=== PATIENT | male | born 1935 | race Caucasian/White ===

== ENCOUNTER 2019-01-22 23:59 | Inpatient (IN) | payer MEDICARE, OTHER ==
[2019-01-23 00:36] LABS: ADD MAN DIFF? NO
[2019-01-23 00:38] LABS: ABNORMAL IP MESSAGE 1; BASOPHIL # 0.1 10^3/ul (0.0-0.1); BASOPHILS % 0.2 % (0.0-2.0); EOSINOPHILS % 0.1 % (0.0-7.0); HEMATOCRIT 46.9 % (42.0-52.0); HEMOGLOBIN 14.6 g/dl (14.0-18.0); LYMPHOCYTES # 0.7 10^3/ul (0.8-2.9); LYMPHOCYTES % 2.9 % (15.0-51.0); MEAN CORPUSCULAR HEMOGLOBIN 25.1 pg (29.0-33.0); MEAN CORPUSCULAR HGB CONC 31.1 g/dl (32.0-37.0); MEAN CORPUSCULAR VOLUME 80.6 fl (82.0-101.0); MEAN PLATELET VOLUME 10.2 fl (7.4-10.4); MONOCYTE # 1.1 10^3/ul (0.3-0.9); MONOCYTES % 4.4 % (0.0-11.0); NEUTROPHIL # 22.9 10^3/ul (1.6-7.5); NEUTROPHILS % 91.9 % (39.0-77.0); PLATELET COUNT 153 10^3/UL (140-415); POSITIVE DIFF @See below; RED BLOOD COUNT 5.82 10^6/ul (4.70-6.10); RED CELL DISTRIBUTION WIDTH 16.4 % (11.5-14.5)
[2019-01-23 00:38] LABS: WHITE BLOOD COUNT 24.9 10^3/ul (4.8-10.8)
[2019-01-23 00:55] LABS: ALANINE AMINOTRANSFERASE 14 IU/L (13-69); ALKALINE PHOSPHATASE 82 IU/L (42-121); ANION GAP 11 (5-13); ASPARTATE AMINO TRANSFERASE 21 IU/L (15-46); BLOOD UREA NITROGEN 21 mg/dl (7-20); CALCIUM 9.4 mg/dl (8.4-10.2); CARBON DIOXIDE 25 mmol/L (21-31); CHLORIDE 106 mmol/L (97-110); CREATININE 1.12 mg/dl (0.61-1.24); GLUCOSE 126 mg/dl (70-220); POTASSIUM 4.2 mmol/L (3.5-5.1); SODIUM 142 mmol/L (135-144)
[2019-01-23 00:56] LABS: ALBUMIN 4.3 g/dl (3.3-4.9); ALBUMIN/GLOBULIN RATIO 1.16
[2019-01-23 01:07] LABS: TROPONIN-I 0.015 ng/ml (0.000-0.120)
[2019-01-23 01:14] LABS: INR 1.01; PROTIME 13.4 Sec (11.9-14.9)
[2019-01-23 01:15] LABS: PARTIAL THROMBOPLASTIN TIME 30.7 Sec (23.0-35.0)
[2019-01-23 01:16] LABS: ADD UMIC YES; UR ASCORBIC ACID NEGATIVE (NEGATIVE); UR BILIRUBIN (Dip) NEGATIVE (NEGATIVE); UR BLOOD (Dip) 2+ mg/dL (NEGATIVE); UR CLARITY SLIGHTLY CLOUDY (CLEAR); UR COLOR YELLOW (YELLOW); UR GLUCOSE (Dip) NEGATIVE (NEGATIVE); UR KETONES (Dip) NEGATIVE (NEGATIVE); UR LEUKOCYTE ESTERASE (Dip) NEGATIVE Leu/ul (NEGATIVE); UR MUCUS FEW /HPF (NONE SEEN); UR NITRITE (Dip) NEGATIVE (NEGATIVE); UR RBC 2 /HPF (0-5); UR SPECIFIC GRAVITY (Dip) 1.019 (1.003-1.030); UR TOTAL PROTEIN (Dip) 1+ mg/dl (NEGATIVE); UR UROBILINOGEN (Dip) NEGATIVE (NEGATIVE); UR WBC 1 /HPF (0-5)
[2019-01-23] MEDS: ACETAMINOPHEN 325 MG TAB PO (03:43)
[2019-01-23] MEDS: PIPER-TAZO 3.375 GM IV (PMX) 100 ML IVPB ×5 (03:44→23:03)
[2019-01-23 03:50] LABS: LACTIC ACID 1.2 mmol/L (0.5-2.0)
[2019-01-23] MEDS ORDERED: DOCUSATE SODIUM 100 MG CAP PO (04:00)
[2019-01-23] MEDS ORDERED: ACETAMINOPHEN 325 MG TAB PO (04:00)
[2019-01-23] MEDS ORDERED: VANCOMYCIN IV PER PHARMACY XX (04:00)
[2019-01-23] MEDS ORDERED: NACL 0.9% 3 ML SYG IV (04:00)
[2019-01-23] MEDS ORDERED: ONDANSETRON 4 MG INJ IV (04:00)
[2019-01-23] MEDS: VANCOMYCIN 1 GM (PMX) 250 ML IVPB (04:23)
[2019-01-23 04:58] LABS: LACTIC ACID 1.2 mmol/L (0.5-2.0)
[2019-01-24] MEDS: VANCOMYCIN HCL 1.25 GM in SOD CHLORIDE 0.9% 250 ML IVPB (02:03)
[2019-01-24] MEDS: hydrALAzine 20 MG INJ IV (02:03)
[2019-01-24] MEDS: ALBUTEROL/IPRATROPIUM (NEB) 3 ML AMP HHN (03:07)
[2019-01-24] MEDS ORDERED: LEVALBUTEROL (NEB) 1.25 MG/0.5 ML AMP HHN (03:30)
[2019-01-24] MEDS: FUROSEMIDE 20 MG INJ IV (03:51)
[2019-01-24] MEDS: PIPER-TAZO 3.375 GM IV (PMX) 100 ML IVPB ×2 (05:29→11:24)
[2019-01-24 05:58] LABS: ADD MAN DIFF? NO
[2019-01-24 06:10] LABS: ABNORMAL IP MESSAGE 1; BASOPHIL # 0.1 10^3/ul (0.0-0.1); BASOPHILS % 0.3 % (0.0-2.0); EOSINOPHILS # 0.1 10^3/ul (0.0-0.5); EOSINOPHILS % 0.4 % (0.0-7.0); HEMATOCRIT 45.5 % (42.0-52.0); HEMOGLOBIN 13.9 g/dl (14.0-18.0); LYMPHOCYTES # 0.7 10^3/ul (0.8-2.9); LYMPHOCYTES % 3.1 % (15.0-51.0); MEAN CORPUSCULAR HEMOGLOBIN 25.1 pg (29.0-33.0); MEAN CORPUSCULAR HGB CONC 30.5 g/dl (32.0-37.0); MEAN CORPUSCULAR VOLUME 82.1 fl (82.0-101.0); MEAN PLATELET VOLUME 10.4 fl (7.4-10.4); MONOCYTE # 1.4 10^3/ul (0.3-0.9); MONOCYTES % 5.8 % (0.0-11.0); NEUTROPHIL # 21.2 10^3/ul (1.6-7.5); NEUTROPHILS % 89.7 % (39.0-77.0); PLATELET COUNT 146 10^3/UL (140-415); POSITIVE DIFF @See below; RED BLOOD COUNT 5.54 10^6/ul (4.70-6.10); RED CELL DISTRIBUTION WIDTH 16.7 % (11.5-14.5)
[2019-01-24 06:10] LABS: WHITE BLOOD COUNT 23.6 10^3/ul (4.8-10.8)
[2019-01-24 06:40] LABS: ALANINE AMINOTRANSFERASE 11 IU/L (13-69); ALBUMIN/GLOBULIN RATIO 1.14; ALKALINE PHOSPHATASE 72 IU/L (42-121); ANION GAP 11 (5-13); ASPARTATE AMINO TRANSFERASE 19 IU/L (15-46); BILIRUBIN,INDIRECT 0.7 mg/dl (0-1.1); BILIRUBIN,TOTAL 0.7 mg/dl (0.2-1.3); BLOOD UREA NITROGEN 23 mg/dl (7-20); CALCIUM 9.2 mg/dl (8.4-10.2); CARBON DIOXIDE 25 mmol/L (21-31); CHLORIDE 108 mmol/L (97-110); CHOL/HDL RATIO 4.1 RATIO; CHOLESTEROL 149 mg/dl (100-200); CREATININE 1.11 mg/dl (0.61-1.24); GLUCOSE 121 mg/dl (70-220); HDL CHOLESTEROL 36 mg/dl (31-75); LDL CHOLESTEROL,CALCULATED 89 mg/dl; POTASSIUM 3.5 mmol/L (3.5-5.1); SODIUM 144 mmol/L (135-144); TOTAL PROTEIN 7.5 g/dl (6.1-8.1); TRIGLYCERIDES 118 mg/dl (0-149)
[2019-01-24 07:43] LABS: HEMOGLOBIN A1C 5.3 % (0-5.9)
[2019-01-24] MEDS ORDERED: LEVALBUTEROL (NEB) 0.63 MG/3 ML AMP HHN (08:30)
[2019-01-24] MEDS: ENOXAPARIN 40 MG/0.4 ML SYG SC (08:48)
[2019-01-24] MEDS: ASPIRIN 81 MG TAB PO (10:10)
[2019-01-24] MEDS: LABETALOL 200 MG TAB PO ×2 (10:10→21:34)
[2019-01-24] MEDS: ENALAPRIL 10 MG TAB PO (10:11)
[2019-01-24] MEDS: SERTRALINE 50 MG TAB PO (10:11)
[2019-01-24] MEDS: CHOLECALCIFEROL 1,000 UNIT TAB PO (10:11)
[2019-01-24] MEDS: TAMSULOSIN (SR) 0.4 MG CAP PO (21:33)
[2019-01-24] MEDS: ATORVASTATIN 20 MG TAB PO (21:33)
[2019-01-24] MEDS: CEFEPIME 1GM/50 ML (PMX) 50 ML IVPB (21:35)
[2019-01-24] MEDS: ENOXAPARIN 100 MG/ML SYG SC (21:38)
[2019-01-25] MEDS: VANCOMYCIN HCL 1.25 GM in SOD CHLORIDE 0.9% 250 ML IVPB (03:17)
[2019-01-25 05:31] LABS: ADD MAN DIFF? NO
[2019-01-25 05:36] LABS: BASOPHIL # 0.1 10^3/ul (0.0-0.1); BASOPHILS % 0.7 % (0.0-2.0); EOSINOPHILS # 0.3 10^3/ul (0.0-0.5); EOSINOPHILS % 2.4 % (0.0-7.0); HEMATOCRIT 42.4 % (42.0-52.0); HEMOGLOBIN 12.8 g/dl (14.0-18.0); LYMPHOCYTES # 1.7 10^3/ul (0.8-2.9); LYMPHOCYTES % 14.5 % (15.0-51.0); MEAN CORPUSCULAR HEMOGLOBIN 25.5 pg (29.0-33.0); MEAN CORPUSCULAR HGB CONC 30.2 g/dl (32.0-37.0); MEAN CORPUSCULAR VOLUME 84.5 fl (82.0-101.0); MEAN PLATELET VOLUME 10.6 fl (7.4-10.4); MONOCYTE # 1.1 10^3/ul (0.3-0.9); MONOCYTES % 9.1 % (0.0-11.0); NEUTROPHIL # 8.3 10^3/ul (1.6-7.5); NEUTROPHILS % 72.7 % (39.0-77.0); PLATELET COUNT 124 10^3/UL (140-415); RED BLOOD COUNT 5.02 10^6/ul (4.70-6.10)
[2019-01-25 05:36] LABS: WHITE BLOOD COUNT 11.5 10^3/ul (4.8-10.8)
[2019-01-25 06:12] LABS: ALBUMIN 3.4 g/dl (3.3-4.9); ANION GAP 7 (5-13); BLOOD UREA NITROGEN 27 mg/dl (7-20); CALCIUM 8.9 mg/dl (8.4-10.2); CARBON DIOXIDE 28 mmol/L (21-31); CHLORIDE 107 mmol/L (97-110); CREATININE 1.28 mg/dl (0.61-1.24); GLUCOSE 105 mg/dl (70-220); MAGNESIUM 2.2 mg/dl (1.7-2.5); PHOSPHORUS 4.6 mg/dl (2.5-4.9); POTASSIUM 3.6 mmol/L (3.5-5.1); SODIUM 142 mmol/L (135-144)
[2019-01-25] MEDS: ASPIRIN 81 MG TAB PO (08:13)
[2019-01-25] MEDS: SERTRALINE 50 MG TAB PO (08:13)
[2019-01-25] MEDS: ENALAPRIL 10 MG TAB PO (08:13)
[2019-01-25] MEDS: BISACODYL (EC) 5 MG TAB PO (08:13)
[2019-01-25] MEDS: CEFEPIME 1GM/50 ML (PMX) 50 ML IVPB (08:14)
[2019-01-25] MEDS: LABETALOL 200 MG TAB PO ×2 (08:14→21:23)
[2019-01-25] MEDS: CHOLECALCIFEROL 1,000 UNIT TAB PO (08:14)
[2019-01-25] MEDS: ENOXAPARIN 100 MG/ML SYG SC ×2 (08:15→21:24)
[2019-01-25] MEDS: CEFTRIAXONE 1 GM/50 ML (PMX) 50 ML IVPB (15:42)
[2019-01-25 17:06] LABS: ADD UMIC YES; UR ASCORBIC ACID NEGATIVE (NEGATIVE); UR BILIRUBIN (Dip) NEGATIVE (NEGATIVE); UR BLOOD (Dip) NEGATIVE (NEGATIVE); UR CLARITY SLIGHTLY CLOUDY (CLEAR); UR COLOR YELLOW (YELLOW); UR GLUCOSE (Dip) NEGATIVE (NEGATIVE); UR KETONES (Dip) TRACE mg/dL (NEGATIVE); UR LEUKOCYTE ESTERASE (Dip) NEGATIVE Leu/ul (NEGATIVE); UR MUCUS FEW /HPF (NONE SEEN); UR NITRITE (Dip) NEGATIVE (NEGATIVE); UR RBC 2 /HPF (0-5); UR SPECIFIC GRAVITY (Dip) 1.028 (1.003-1.030); UR TOTAL PROTEIN (Dip) 1+ mg/dl (NEGATIVE); UR UROBILINOGEN (Dip) NEGATIVE (NEGATIVE); UR WBC 1 /HPF (0-5)
[2019-01-25 17:21] LABS: SODIUM,URINE RANDOM 19 mmol/L (30-90)
[2019-01-25] MEDS: WARFARIN 7.5 MG TAB PO (21:23)
[2019-01-25] MEDS: ATORVASTATIN 20 MG TAB PO (21:23)
[2019-01-25] MEDS: TAMSULOSIN (SR) 0.4 MG CAP PO (21:23)
[2019-01-26 05:41] LABS: ADD MAN DIFF? NO
[2019-01-26 05:49] LABS: BASOPHIL # 0.1 10^3/ul (0.0-0.1); BASOPHILS % 0.5 % (0.0-2.0); EOSINOPHILS # 0.3 10^3/ul (0.0-0.5); EOSINOPHILS % 2.9 % (0.0-7.0); HEMOGLOBIN 12.2 g/dl (14.0-18.0); LYMPHOCYTES # 1.5 10^3/ul (0.8-2.9); LYMPHOCYTES % 13.2 % (15.0-51.0); MEAN CORPUSCULAR HEMOGLOBIN 25.5 pg (29.0-33.0); MEAN CORPUSCULAR HGB CONC 30.5 g/dl (32.0-37.0); MEAN CORPUSCULAR VOLUME 83.5 fl (82.0-101.0); MEAN PLATELET VOLUME 10.8 fl (7.4-10.4); MONOCYTE # 0.8 10^3/ul (0.3-0.9); MONOCYTES % 7.4 % (0.0-11.0); NEUTROPHIL # 8.4 10^3/ul (1.6-7.5); NEUTROPHILS % 75.2 % (39.0-77.0); PLATELET COUNT 136 10^3/UL (140-415); RED BLOOD COUNT 4.79 10^6/ul (4.70-6.10)
[2019-01-26 05:49] LABS: WHITE BLOOD COUNT 11.2 10^3/ul (4.8-10.8)
[2019-01-26 06:09] LABS: INR 1.16; PROTIME 14.9 Sec (11.9-14.9); PT RATIO 1.2
[2019-01-26 08:52] LABS: ALBUMIN 3.4 g/dl (3.3-4.9); ANION GAP 8 (5-13); BLOOD UREA NITROGEN 31 mg/dl (7-20); CALCIUM 9.1 mg/dl (8.4-10.2); CARBON DIOXIDE 25 mmol/L (21-31); CHLORIDE 108 mmol/L (97-110); GLUCOSE 97 mg/dl (70-220); MAGNESIUM 2.1 mg/dl (1.7-2.5); PHOSPHORUS 4.4 mg/dl (2.5-4.9); POTASSIUM 3.9 mmol/L (3.5-5.1); SODIUM 141 mmol/L (135-144)
[2019-01-26] MEDS ORDERED: METOPROLOL (XL) 25 MG TAB PO (09:00)
[2019-01-26] MEDS: SERTRALINE 50 MG TAB PO (09:09)
[2019-01-26] MEDS: CHOLECALCIFEROL 1,000 UNIT TAB PO (09:09)
[2019-01-26] MEDS: LABETALOL 200 MG TAB PO ×2 (09:10→20:54)
[2019-01-26] MEDS: LISINOPRIL 5 MG TAB PO (09:10)
[2019-01-26] MEDS: ASPIRIN 81 MG TAB PO (11:15)
[2019-01-26] MEDS: ENOXAPARIN 100 MG/ML SYG SC ×2 (11:16→20:55)
[2019-01-26] MEDS: CEFTRIAXONE 1 GM/50 ML (PMX) 50 ML IVPB (15:03)
[2019-01-26] MEDS: WARFARIN 5 MG TAB PO (17:00)
[2019-01-26] MEDS: TAMSULOSIN (SR) 0.4 MG CAP PO (20:53)
[2019-01-26] MEDS: ATORVASTATIN 20 MG TAB PO (20:53)
[2019-01-27 05:17] LABS: ADD MAN DIFF? NO
[2019-01-27 05:19] LABS: BASOPHILS % 0.4 % (0.0-2.0); EOSINOPHILS # 0.3 10^3/ul (0.0-0.5); EOSINOPHILS % 3.1 % (0.0-7.0); HEMATOCRIT 39.7 % (42.0-52.0); HEMOGLOBIN 12.2 g/dl (14.0-18.0); LYMPHOCYTES # 1.6 10^3/ul (0.8-2.9); MEAN CORPUSCULAR HEMOGLOBIN 25.8 pg (29.0-33.0); MEAN CORPUSCULAR HGB CONC 30.7 g/dl (32.0-37.0); MEAN CORPUSCULAR VOLUME 83.9 fl (82.0-101.0); MEAN PLATELET VOLUME 11.2 fl (7.4-10.4); MONOCYTE # 0.6 10^3/ul (0.3-0.9); NEUTROPHIL # 6.6 10^3/ul (1.6-7.5); NEUTROPHILS % 71.8 % (39.0-77.0); PLATELET COUNT 138 10^3/UL (140-415); RED BLOOD COUNT 4.73 10^6/ul (4.70-6.10); RED CELL DISTRIBUTION WIDTH 16.8 % (11.5-14.5)
[2019-01-27 05:19] LABS: WHITE BLOOD COUNT 9.2 10^3/ul (4.8-10.8)
[2019-01-27 05:37] LABS: INR 1.28; PROTIME 16.1 Sec (11.9-14.9); PT RATIO 1.3
[2019-01-27 05:44] LABS: ANION GAP 9 (5-13); BLOOD UREA NITROGEN 29 mg/dl (7-20); CALCIUM 9.1 mg/dl (8.4-10.2); CARBON DIOXIDE 26 mmol/L (21-31); CHLORIDE 107 mmol/L (97-110); CREATININE 0.98 mg/dl (0.61-1.24); GLUCOSE 98 mg/dl (70-220); PHOSPHORUS 3.9 mg/dl (2.5-4.9); POTASSIUM 4.2 mmol/L (3.5-5.1); SODIUM 142 mmol/L (135-144)
[2019-01-27 08:13] LABS: ALBUMIN 3.4 g/dl (3.3-4.9); ANION GAP 9 (5-13); BLOOD UREA NITROGEN 30 mg/dl (7-20); CARBON DIOXIDE 25 mmol/L (21-31); CHLORIDE 109 mmol/L (97-110); GLUCOSE 91 mg/dl (70-220); MAGNESIUM 2.1 mg/dl (1.7-2.5); PHOSPHORUS 3.9 mg/dl (2.5-4.9); POTASSIUM 4.3 mmol/L (3.5-5.1); SODIUM 143 mmol/L (135-144)
[2019-01-27] MEDS: SERTRALINE 50 MG TAB PO (08:37)
[2019-01-27] MEDS: CHOLECALCIFEROL 1,000 UNIT TAB PO (08:37)
[2019-01-27] MEDS: LABETALOL 200 MG TAB PO (08:38)
[2019-01-27] MEDS: ENOXAPARIN 100 MG/ML SYG SC (08:39)
[2019-01-27] MEDS: LISINOPRIL 5 MG TAB PO (08:42)
[2019-01-27] MEDS: LEVOFLOXACIN 750 MG TABLET PO (12:16)
== END 2019-01-27 15:35 | DRG 872 ==
LOC: E/R 23:59 → 5EC 01-23 03:38
DX: A41.9 Sepsis, unspecified organism (principal); N39.0 Urinary tract infection, site not specified; I42.9 Cardiomyopathy, unspecified; N17.9 Acute kidney failure, unspecified; E86.0 Dehydration; F03.90 Unspecified dementia, unspecified severity, without behavioral disturbance, psychotic disturbance, mood disturbance, and anxiety; I10 Essential (primary) hypertension; I25.10 Atherosclerotic heart disease of native coronary artery without angina pectoris; B96.20 Unspecified Escherichia coli [E. coli] as the cause of diseases classified elsewhere; Z95.810 Presence of automatic (implantable) cardiac defibrillator; Z85.038 Personal history of other malignant neoplasm of large intestine; Z87.891 Personal history of nicotine dependence; Z79.82 Long term (current) use of aspirin
CPT/HCPCS: 36415; 71045; 76775; 80048; 80053; 80061; 80069; 81001; 81003; 83036; 83605; 83735; 84100; 84155; 84300; 84443; 84484; 85025; 85610; 85730; 87040-91; 87086; 87400; 93005; 93306; 94664; 97116; 97162; 97530; 99285-25